=== PATIENT | male | born 1945 | race Caucasian/White ===

== ENCOUNTER 2019-05-23 12:12 | Day surgery (SDC) | payer MEDICARE ==
[2019-05-20 11:07] VITALS: BMI 29.4
[~2019-05-23 12:12] MED LIST: Lidocaine 1% PF 5 ML VIAL ONE; Magnevist 469MG/ML 20 ML VIAL ONE; Ondansetron PF 4 MG/2 ML Vial ONE; PROPOFOL 200 MG/20 ML VIAL ONE; diphenhydrAMINE 50 MG/ML VIAL ONE
[2019-05-23] MEDS ORDERED: Fentanyl 100 MCG/2 ML VIAL ONE (14:28)
[2019-05-23] MEDS ORDERED: Midazolam HCl 2 mg/2 ml Vial ONE (14:28)
--- NOTE | 2019-05-23 15:47 | MRI ---
MRI Cervical spine with and without contrast: HISTORY: Neck pain, cervical radiculopathy. Patient states right-sided neck pain with pain radiating to right shoulder. COMPARISON: None FINDINGS: Mild cerebral and cerebellar volume loss is partially imaged. The craniocervical junction is unremark able. No significant cord signal abnormality. Paravertebral soft tissues have a normal appearance and normal signal intensity. No abnormal areas of enhancement are seen after the administration of intravenous contrast. C1-2:No significant stenosis. C2-3: There is a mild disc osteophyte complex with uncinate process hypertrophy. There is mild efface ment of the ventral subarachnoid space. Facet degenerative changes are noted. Findings result in mild right and moderate left-sided neural foraminal narrowing. C3-4: There is a mild disc osteophyte complex and uncinate process hypertrophy. There is mild narrowi ng of the central spinal canal with slight flattening of the anterior aspect of the spinal cord. Moderate to severe bilateral neural foraminal narrowing is present. C4-5: There is a broad-based disc osteophyte complex and facet hypertrophic changes. There is general ized narrowing of the central spinal canal. Moderate right and severe left-sided neural foraminal narrowing are present. C5-6: There is mild loss of intervertebral disc height. Broad-based disc osteophyte complex is presen t. This narrows ventral subarachnoid space with encroachment on the anterior aspect of the spinal cord. Mild bilateral neural foraminal narrowing is present. C6-7: There is no significant disc bulge disc herniation. Minimal uncinate process hypertrophy is pre sent. Central spinal canal and neural foramina are patent. C7-T1: There is no disc bulge or disc herniation. Central spinal canal and neural foramina are patent . T1-2 level: There is a disc osteophyte complex with a left central and paracentral disc protrusion. T his disc protrusion does result in slight mass effect on the spinal cord, but there is normal signal intensity in the spinal cord at this level. The neural foramina are patent. IMPRESSION: Degenerative changes in the cervical spine greatest at the C3-4 and C4-5 levels where there is modera te and severe degrees of neural foraminal narrowing.
== END 2019-05-23 16:48 | disposition home or self-care (01) ==
LOC: SDC/OP 12:12
PROVIDERS: ATTEND Family Medicine
DX: M54.12 Radiculopathy, cervical region (principal); I10 Essential (primary) hypertension; E11.9 Type 2 diabetes mellitus without complications; E78.5 Hyperlipidemia, unspecified; M19.90 Unspecified osteoarthritis, unspecified site; Z79.4 Long term (current) use of insulin; Z79.82 Long term (current) use of aspirin; Z79.899 Other long term (current) drug therapy
CPT/HCPCS: 72156; 82565; A9579; J1200; J2001; J2250; J2405; J2704; J3010

== ENCOUNTER 2020-06-04 14:25 | Observation (INO) | payer MEDICARE ==
[2020-06-04 14:44] LABS: #Eosinphils 0.1 thou/uL (0.0-0.7); #Lymphocytes 1.4 thou/uL (1.20-3.40); #Monocytes 0.4 thou/uL (0.11-0.59); #Neutrophils 3.7 thou/uL (1.40-6.50); %Basophils 0.1 % (0.0-1.0); %Eosinophils 2.4 % (0.0-10.0); %Lymphocytes 24.8 % (21.0-51.0); %Monocytes 7.5 % (0.0-10.0); %Neutrophils 65.2 % (42.0-75.0); Hemoglobin 16.4 g/dL (14.0-18.0); Mean Corpuscular HGB CONC 34.2 g/dL (32.0-36.0); Mean Corpuscular Hemoglobin 31.2 pg (27.0-31.0); Mean Corpuscular Volume 91.4 fL (78.0-98.0); Mean Platelet Volume 7.7 fL (7.4-10.4); Platelet Count 129 thou/uL (130-400); RBC Distribution Width 12.1 % (11.5-14.5); Red Blood Cell (RBC) Count 5.26 mill/uL (4.70-6.10); White Blood Cell (WBC) Count 5.7 thou/uL (4.8-10.8)
--- NOTE | 2020-06-04 15:03 | RAD ---
Portable frontal chest radiograph: 06/04/2020 COMPARISON: 06/04/2015 HISTORY: Bradycardia, dyspnea FINDINGS: Lungs are clear. Heart and mediastinal contours appear within normal limits. Midline sterno fam wires are present. IMPRESSION: No acute findings.
[2020-06-04 15:27] LABS: ALT (SGPT) 13 U/L (8-55); AST (SGOT) 17 U/L (5-34); Albumin 4.3 g/dL (3.4-4.8); Alkaline Phosphatase 56 U/L (40-110); BUN (Urea Nitrogen) 26 mg/dL (8.4-25.7); Calc. Creatinine Clearance 0 mL/min (70-130); Carbon Dioxide 20 mmol/L (23-31); Globulin 2.6 g/dL (2.4-3.5); Glucose 142 mg/dL (83-110); Protein, Total 6.9 g/dL (5.8-8.1)
[2020-06-04 16:39] LABS: Chloride 109 mmol/L (98-107); Potassium 4.7 mmol/L (3.5-5.1); Sodium 144 mmol/L (136-145)
[2020-06-04 16:42] LABS: Anion Gap 18 mmol/L (10-20)
[2020-06-04 17:56] LABS: Troponin I 0.018 ng/mL (< 0.028)
[2020-06-04] MEDS ORDERED: Acetaminophen 650 MG Suppository PR PRN (18:17)
[2020-06-04] MEDS ORDERED: Dextrose 5% in Water 1,000 ML IV PRN (18:20)
[2020-06-04] MEDS ORDERED: HumaLOG 300 UNITS/3 ML VIAL SC PRN ×2 (18:20)
[2020-06-04] MEDS ORDERED: Dextrose 50% Abboject 50 ML SYRINGE SLOW IVP PRN (18:20)
--- NOTE | 2020-06-04 18:46 | PDOC.HHP ---
Hospitalist HPI - History of Present Illness History of Present Illness: ADMISSION DATE: 05/27/2020 TIME OF ASSESSMENT: 1800 PRIMARY CARE PHYSICIAN: Dr. Peraza CHIEF COMPLAINT: Slow heart rate HPI: This is a 74-year-old gentleman who was brought into the emergency department due to an episode of bradycardia that occurred while he was having a procedure done at [facility]. He was having a nerve ablation done. A code green was called. Patient reports being completely asymptomatic during this episode and did not realize his heart rate had decreased to the 20s. Denies any chest pain, shortness of breath, diaphoresis, lightheadedness or other symptoms. He reportedly was in bigeminy. During the procedure he had been given Versed and 50 mcg of fentanyl. He reportedly remained normotensive and at the time of initial presentation his blood pressure was 160/50. He last saw Dr. Sánchez 6 months ago and states that she had recommended a repeat stress test to be done in the next next few weeks. He last saw his primary care doctor 1 week ago and states it was a routine visit for his diabetes. ROS: Reports feeling well in recent days and denies having any recent fevers chills or sweats. No headaches or dizziness. No nausea or vomiting. His appetite has been good. Denies any changes with his stools. No urinary symptoms. Denies any shortness of breath with exertion. No recent cough or hemoptysis. All other review of systems are negative. ED COURSE: In the emergency department he had an EKG done which showed sinus bradycardia with a heart rate of 62, and bigeminy. Patient without any ST changes or T wave abnormalities. Chest x-ray was done showing no acute findings. Laboratory studies demonstrated a normal white blood count of 5.7, hemoglobin 16.4, hematocrit 48, platelets 129, neutrophils 65.2. BUN 26, creatinine 1.52, GFR 45. Glucose 142. LFTs normal. Magnesium 1.8. PAST MEDICAL HISTORY: 1. Type 2 diabetes 3. Hypertension 3. CAD 4. Chronic kidney disease 5. Hyperlipidemia 6. Arthritis PAST SURGICAL HISTORY: 1. CABG x5 2. Bilateral knee arthroscopy 3. Right shoulder surgery 4. Left shoulder rotator cuff repair 5. Sebaceous cyst excised from back SOCIAL HISTORY: Retired and . He denies any tobacco use, heavy alcohol consumption or drug use. He is fully independent at baseline and mobilizes without the use of assistive devices. FAMILY HISTORY: Father , heart disease. Mother , cancer. Siblings , lung cancer. ALLERGIES: No known drug allergies CURRENT MEDICATIONS: 1. Tylenol No. 3 2. Terazosin 3. Amlodipine 10 mg p.o. daily 4. Ranexa 500 mg ER p.o. twice daily 5. Fenofibrate 145 mg p.o. daily 6. Carvedilol 6.25 mg p.o. twice daily 7. Zolpidem 10 mg p.o. at bedtime 8. Aspirin 81 mg p.o. daily 9. Insulin glargine subcutaneous 10 units at noon and 42 units at bedtime 10. Cyclobenzaprine 10 mg p.o. 3 times daily as needed - Exam General Appearance: NAD, awake alert General - other findings: VS: Temp 97.5, HR 58, RR 15, O2 sat 100% on room air. Pain 0 out of 10. ENT: normocephalic atraumatic, no oropharyngeal lesions Neck: supple, symmetric, no JVD, no thyromegaly, no lymphadenopathy Heart: RRR, no murmur, no gallops, no rubs, normal peripheral pulses Respiratory: CTAB, no wheezes, no rales, no ronchi, normal chest expansion Gastrointestinal: soft, non-tender, non-distended, normal bowel sounds, no guarding, no rigidity Extremities: no cyanosis, no clubbing, no edema Skin: normal turgor, no lesions, no rashes Neurological: cranial nerve grossly intact, normal sensation to touch Musculoskeletal: normal tone, normal strength, no muscle wasting Psychiatric: normal affect, normal behavior, A&O x 3 Hospitalist Results - Labs Result Diagrams: 06/04/20 14:27 06/04/20 14:27 Lab results: WBC 5.7 thou/uL (4.8-10.8) 06/04/20 14:27 Hgb 16.4 g/dL (14.0-18.0) 06/04/20 14:27 Hct 48.0 % (42.0-52.0) 06/04/20 14:27 MCV 91.4 fL (78.0-98.0) 06/04/20 14:27 Plt Count 129 thou/uL (130-400) L 06/04/20 14:27 Neutrophils % 65.2 % (42.0-75.0) 06/04/20 14:27 Sodium 144 mmol/L (136-145) 06/04/20 14:27 Potassium 4.7 mmol/L (3.5-5.1) 06/04/20 14:27 Chloride 109 mmol/L (98-107) H 06/04/20 14:27 Carbon Dioxide 20 mmol/L (23-31) L 06/04/20 14:27 BUN 26 mg/dL (8.4-25.7) H 06/04/20 14:27 Creatinine 1.52 mg/dL (0.7-1.3) H 06/04/20 14:27 Glucose 142 mg/dL (83-110) H 06/04/20 14:27 Calcium 9.0 mg/dL (7.8-10.44) 06/04/20 14:27 Total Bilirubin 1.0 mg/dL (0.2-1.2) 06/04/20 14:27 AST 17 U/L (5-34) 06/04/20 14:27 ALT 13 U/L (8-55) 06/04/20 14:27 Alkaline Phosphatase 56 U/L (40-110) 06/04/20 14:27 Troponin I 0.018 ng/mL (< 0.028) 06/04/20 17:23 Serum Total Protein 6.9 g/dL (5.8-8.1) 06/04/20 14:27 Albumin 4.3 g/dL (3.4-4.8) 06/04/20 14:27 - Radiology Interpretation Chest x-ray Status: report reviewed by ia Hospitalist H&P A/P - Problem (1) Bradycardia Code(s): R00.1 - BRADYCARDIA, UNSPECIFIED Status: Acute (2) Thrombocytopenia Code(s): D69.6 - THROMBOCYTOPENIA, UNSPECIFIED Status: Acute (3) Hypertension Code(s): I10 - ESSENTIAL (PRIMARY) HYPERTENSION Status: Chronic (4) Diabetes mellitus Code(s): E11.9 - TYPE 2 DIABETES MELLITUS WITHOUT COMPLICATIONS Status: Chronic (5) Hyperlipidemia Code(s): E78.5 - HYPERLIPIDEMIA, UNSPECIFIED Status: Chronic (6) CAD (coronary artery disease) Code(s): I25.10 - ATHSCL HEART DISEASE OF [place] CORONARY ARTERY W/O ANG PCTRS Status: Chronic (7) CKD (chronic kidney disease) Code(s): N18.9 - CHRONIC KIDNEY DISEASE, UNSPECIFIED Status: Chronic Qualifiers: Chronic kidney disease stage: stage 3 (moderate) - Plan Plan: Patient with episode of asymtomatic bradycardia while undergoing nerve ablation for chronic back pain. HR dropped to 20s, unclear for how long and reportedly remained normotensive. EKG on arrival showed bigeminy with HR in 60s. Has not had further drop in HR while in the ED. Dr. Sánchez his plate setter was notified by ED physician. Patient admitted for further observation/work-up. Remains without complaints and will be admitted to Tele/Obs for management of following: Bradycardia: Continue cardiac monitoring Trend troponins Check TSH Mg 1.8, will give 1 g of Magnesium Sulfate Will repeat lytes with AM labs. Consult placed to Dr. Sánchez NPO after midnight Thrombocytopenia: No s/s of bleeding. Ok to continue daily aspirin Recheck with AM labs Hypertension: Monitor BP Resume home meds as appropriate once verified Hold beta-blockers until cleared by Dr. Sánchez Diabetes mellitus: Accu-cheks ACHS Cover with sliding scale CKD: Monitor renal function Repeat with AM labs CAD: Stable Hyperlipidemia: Resume home meds once verified GI Prophylaxis: Famotidine 20 mg PO BID DVT Prophylaxis: Mechanical SCDs Patient is ambulatory Consider Lovenox initiation of anticipating prolonged stay CODE STATUS: FULL Patients case discussed with attending who agrees with plan as above.
[2020-06-04] MEDS ORDERED: Famotidine 20 MG TAB PO SCH (21:00)
[2020-06-04 21:20] LABS: Troponin I Less than 0.010 ng/mL (< 0.028)
[2020-06-04] MEDS ORDERED: Ondansetron PF 4 MG/2 ML Vial IVP PRN (21:45)
[2020-06-04] MEDS ORDERED: Ondansetron ODT 4 MG TAB SL PRN (21:45)
[2020-06-04 22:05] VITALS: BMI 29.0
[2020-06-04] MEDS ORDERED: Zolpidem Tartrate 5 MG TAB PO PRN (23:05)
[2020-06-04] MEDS: Acetaminophen 325 MG TAB PO PRN (23:10)
[2020-06-05 02:10] LABS: SARS-CoV-2 MS2 Positive; SARS-CoV-2 N Gene Negative; SARS-CoV-2 S Gene Negative; SARS-CoV-2 by NAA Not Detected (NotDetected); SARS-CoV-2 orf1ab Negative
[2020-06-05 04:59] LABS: #Lymphocytes 0.5 thou/uL (1.20-3.40); #Monocytes 0.2 thou/uL (0.11-0.59); #Neutrophils 5.2 thou/uL (1.40-6.50); %Basophils 0.3 % (0.0-1.0); %Eosinophils 0.1 % (0.0-10.0); %Lymphocytes 8.4 % (21.0-51.0); %Neutrophils 88.1 % (42.0-75.0); Hemoglobin 15.1 g/dL (14.0-18.0); Mean Corpuscular HGB CONC 34.8 g/dL (32.0-36.0); Mean Corpuscular Hemoglobin 31.8 pg (27.0-31.0); Mean Corpuscular Volume 91.4 fL (78.0-98.0); Mean Platelet Volume 7.8 fL (7.4-10.4); Platelet Count 117 thou/uL (130-400); Red Blood Cell (RBC) Count 4.74 mill/uL (4.70-6.10)
[2020-06-05 05:21] LABS: Anion Gap 13 mmol/L (10-20); BUN (Urea Nitrogen) 31 mg/dL (8.4-25.7); Calc. Creatinine Clearance 50 mL/min (70-130); Calcium 8.9 mg/dL (7.8-10.44); Carbon Dioxide 24 mmol/L (23-31); Chloride 108 mmol/L (98-107); Glucose 408 mg/dL (83-110); Magnesium 2.1 mg/dL (1.6-2.6); Potassium 4.9 mmol/L (3.5-5.1); Sodium 140 mmol/L (136-145)
[2020-06-05] MEDS: Acetaminophen 325 MG TAB PO PRN (08:27)
[2020-06-05] MEDS ORDERED: Aspirin Chewable 81 MG TAB PO SCH (09:00)
[2020-06-05] MEDS ORDERED: Enoxaparin Sodium 40 MG/0.4 ML SYRINGE SC SCH (09:00)
[2020-06-05] MEDS ORDERED: Amlodipine 10 MG TAB PO SCH (09:00)
[2020-06-05 12:50] VITALS: BP 135/83; TEMP 97.8
--- NOTE | 2020-06-05 14:55 | PDOC.HOSPP ---
- Subjective Encounter Date: 06/05/20 Encounter Time: 14:53 Subjective: Mr. Brock was seen today in follow-up of bradycardia. He does not have any complaints. - Objective Vital Signs & Weight: Vital Signs (12 hours) Temp Pulse Resp BP Pulse Ox 06/05/20 12:18 97.8 F 65 16 135/83 98 06/05/20 08:21 98.6 F 64 16 178/92 H 97 06/05/20 03:51 98.3 F 82 16 168/79 H 96 Weight Weight 202 lb 1.6 oz I&O: 06/04/20 06/05/20 06/06/20 06:59 06:59 06:59 Intake Total 480 Balance 480 Result Diagrams: 06/05/20 04:21 06/05/20 04:21 Additional Labs: Accuchecks 06/05/20 06/05/20 06/04/20 10:16 05:40 21:09 POC Glucose 235 H 345 H 246 H Hospitalist ROS - Medication Medications: Active Medications Generic Name Dose Route Start Last Admin Trade Name Freq PRN Reason Stop Dose Admin Acetaminophen 650 mg 06/04/20 18:17 06/05/20 08:27 Acetaminophen 325 Mg Tab PO 650 mg Q4H PRN Administration Headache/Fever/Mild Pain (1-3) Amlodipine Besylate 10 mg 06/05/20 09:00 06/05/20 08:26 Amlodipine 10 Mg Tab PO 10 mg DAILY JAZZY Administration Aspirin 81 mg 06/05/20 09:00 06/05/20 08:26 Aspirin Chewable 81 Mg Tab PO 81 mg DAILY JAZZY Administration Famotidine 20 mg 06/04/20 21:00 06/04/20 21:35 Famotidine 20 Mg Tab PO 20 mg QPM JAZZY Administration Insulin Human Lispro 0 units 06/04/20 18:20 06/05/20 06:31 Humalog 300 Units/3 Ml Vial SC 5 unit .MILD SLIDING SCALE PRN Administration Mild Correctional Scale Zolpidem Tartrate 5 mg 06/04/20 23:05 06/04/20 23:11 Zolpidem Tartrate 5 Mg Tab PO 5 mg HS PRN Administration Insomnia - Exam Eye: PERRL, anicteric sclera Heart: RRR, no murmur, no gallops, no rubs, normal peripheral pulses Respiratory: CTAB, no wheezes, no rales, no ronchi, normal chest expansion, no tachypnea, normal percussion Gastrointestinal: soft, non-tender, non-distended, normal bowel sounds, no palpable masses, no hepatomegaly Extremities: no cyanosis, no edema Hosp A/P (1) Bradycardia Code(s): R00.1 - BRADYCARDIA, UNSPECIFIED Status: Acute (2) CAD (coronary artery disease) Code(s): I25.10 - ATHSCL HEART DISEASE OF [place] CORONARY ARTERY W/O ANG PCTRS Status: Chronic (3) Diabetes mellitus Code(s): E11.9 - TYPE 2 DIABETES MELLITUS WITHOUT COMPLICATIONS Status: Chronic (4) Hyperlipidemia Code(s): E78.5 - HYPERLIPIDEMIA, UNSPECIFIED Status: Chronic (5) Hypertension Code(s): I10 - ESSENTIAL (PRIMARY) HYPERTENSION Status: Chronic - Plan * Bradycardia- the patient's heart rate has been stable * He has been seen by Dr. Sánchez and cleared for discharge * Plan will be for out patient Stress test and further evaluation
--- NOTE | 2020-06-05 17:02 | CON ---
DATE OF CONSULTATION: 06/05/2020 INDICATION FOR CONSULTATION: This is a 74-year-old gentleman who has a history of known coronary artery disease. He has undergone bypass surgery in the past. He had 5-vessel bypass back in 2006. His most recent cardiac catheterization was in 05/2015, which showed severe 3-vessel coronary artery disease with [place] vessels and also occlusion of saphenous vein graft to the left circumflex as well as to the saphenous vein graft to the diagonal branch. He has still had a patent saphenous vein graft to the right coronary artery, ACEVEDO to the left anterior descending artery, and a radial artery graft also remain patent, I believe this was to the circumflex. He had been doing relatively well until he has recently been complaining of some fatigue and some shortness of breath, but mainly was complaining of fatigue. He has been having significant problems with his back. He has been having back pain. He did undergo some injection yesterday, and while he was in the office, apparently he had a heart rates in the 20s. The patient was asymptomatic. He was then transferred to the emergency room. EKGs here showed that the heart rate has been in the 70s to 80s. There is no indication he had any severe bradycardia; however, he did have PVCs, and most likely, this was the etiology of what was felt to be a slow heart rate, since the PVCs would not have been palpated by the pulse. He has remained completely asymptomatic. He denies any chest pain. He does have a history of PVCs in the past. Even back in 2017, he had significant amounts of PVCs. He is on beta blockers and has been relatively asymptomatic with the PVCs. PAST MEDICAL HISTORY: Significant for: 1. Coronary artery disease. 2. Bypass surgery. 3. Degenerative joint disease. 4. Hypercholesterolemia. 5. Nephrolithiasis. 6. Diabetes, which is type 2. 7. Chronic renal insufficiency, he is followed by the sales developer. 8. Hypertension. 9. Frequent PVCs. PAST SURGICAL HISTORY: 1. He has had bilateral knee arthroscopic procedure. 2. He has had a history of nephrolithiasis, he has had lithotripsy performed. 3. He has had a right shoulder scoping. 4. He has had a hemorrhoidectomy. 5. He had bypass surgery x5; he had a ACEVEDO to the LAD, he had a left radial to the first diagonal branch, he had a greater saphenous vein to second diagonal branch and also to the obtuse marginal branch of the left circumflex and also to the posterolateral branch of the right coronary artery. FAMILY HISTORY: His mother had pancreatitis. Father had myocardial infarctions and had heart disease previously. He has one brother with lymphoma. SOCIAL HISTORY: I believe he smoked in the past, but no longer smokes. ALLERGIES: HE HAS NO ALLERGIES. MEDICATIONS: Prior to admission, included: 1. Terazosin 2 mg tablets once a day at bedtime. 2. He also was using a Basaglar KwikPen 100 units twice a day and this has now been decreased down to once a day. 3. He is on zolpidem 10 mg half a tablet q.p.m. as needed. 4. Coreg 6.25 mg b.i.d. 5. Ranexa 500 mg b.i.d. 6. Aspirin 81 mg a day. 7. Amlodipine 10 mg a day. 8. Tylenol 500 mg as needed q.6 h. 9. He is on other p.r.n. medications. REVIEW OF SYSTEMS: He complains of fatigue and some dyspnea on exertion, but no shortness of breath otherwise, and back pain, otherwise he denied any HEENT complaints, pulmonary complaints, GI complaints, nausea, vomiting, diarrhea. He has had some problems with the blood sugar being too low and his blood pressure medicines were decreased and now he has been relatively stable. Otherwise, 12-point review of systems was unremarkable. LABORATORY DATA: WBC of 6.0, hemoglobin 15.1, and platelet count 117,000. Sodium was 140, potassium 4.9, his BUN was 31 with a creatinine of 1.63, blood sugar was 408, it is now decreased down to 235. EKG shows a normal sinus rhythm with frequent PVCs, no evidence of acute ischemic changes. Cardiac enzymes were negative x3. IMPRESSION AND PLAN: 1. Elderly gentleman with frequent premature ventricular contractions. Given the impression of significant bradycardia, he was completely asymptomatic. He has not had any symptoms since being here in the hospital. He had no bradycardia. He does have significant premature ventricular contractions at times, which is not new for this patient. He has had these in the past, will need to be followed up on a routine basis. He will continue with beta blockers. 2. Generalized fatigue with a history of coronary artery disease. We will schedule him for outpatient stress test to ensure that he has had no progression of coronary artery disease. It may be etiology of the fatigue as well as shortness of breath. 3. History of hypertension, this is under relatively good control at this time, but was somewhat elevated here in the hospital. We will need to perhaps increase his Coreg if at all possible in order to prevent further bradycardia. He may then need to add amlodipine, most likely will add amlodipine to his regimen to lower the blood pressure and we will follow this up in the office also. 4. Hypercholesterolemia. He will continue the present medications. I do not have a recent cholesterol level. This also could be followed up as an outpatient. 5. Chronic kidney disease. So, he will be continued to follow by the sales developer. At this time, I believe the patient is stable for discharge with his PVCs since he is completely asymptomatic and he will undergo stress testing in the office to rule out evidence of progression of coronary artery disease or graft failure. Job ID: [id number]
--- NOTE | 2020-06-05 17:46 | PDOC.DS.DS ---
Provider - Provider Date of Admission: 06/04/20 17:14 Date of Discharge: 06/05/20 Admitting Provider: Kori Karmer MD Consultations: Cardiology Primary Care Physician: Mario Peraza MD Course - Hospital Course Hospital Course: Mr. Ramsay is a pleasant 74-year-old gentleman that has a history of hypertension and diabetes mellitus as well as coronary artery disease. He was placed in observation due to symptomatic bradycardia. Carvedilol was held and he was monitored overnight. His heart rate appears to have recovered well overnight. He was seen by Dr. Sánchez his regular repairer maintenance building who felt that it was safe for him to be discharged home. The plan is for him to undergo an outpatient stress test and further evaluation with regards to his heart rate. These arrangements will be made by Dr. Sánchez. Resuscitation Status: 06/04/20 18:17 Resuscitation Status Routine Co-Sign Provider: Resuscitation Status: FULL: Full Resuscitation - Labs Lab Results: 06/05/20 04:21 06/05/20 04:21 Abnormal Lab Results - Last 48 hrs 06/04/20 14:27: MCH 31.2 H, Plt Count 129 L 06/04/20 14:27: Chloride 109 H, Carbon Dioxide 20 L, BUN 26 H, Creatinine 1.52 H 06/05/20 04:21: Chloride 108 H, BUN 31 H, Creatinine 1.63 H 06/05/20 04:21: MCH 31.8 H, Plt Count 117 L, Neutrophils % 88.1 H, Lymphocytes % 8.4 L, Lymphocytes # 0.5 L - Physical Exam Vitals: Vital Signs (12 hours) Temp Pulse Resp BP Pulse Ox 06/05/20 12:18 97.8 F 65 16 135/83 98 06/05/20 08:21 98.6 F 64 16 178/92 H 97 Weight Weight 202 lb 1.6 oz Physical Exam: The patient was seen and examined on the day of discharge. Problem - Problem (1) Bradycardia Code(s): R00.1 - BRADYCARDIA, UNSPECIFIED Status: Acute (2) CAD (coronary artery disease) Code(s): I25.10 - ATHSCL HEART DISEASE OF [place] CORONARY ARTERY W/O ANG PCTRS Status: Chronic (3) Diabetes mellitus Code(s): E11.9 - TYPE 2 DIABETES MELLITUS WITHOUT COMPLICATIONS Status: Chronic (4) Hyperlipidemia Code(s): E78.5 - HYPERLIPIDEMIA, UNSPECIFIED Status: Chronic (5) Hypertension Code(s): I10 - ESSENTIAL (PRIMARY) HYPERTENSION Status: Chronic Plan - Discharge Medications Home Medications: Medication Instructions Recorded Confirmed Type Amlodipine Besylate [amLODIPine 10 mg PO DAILY 05/30/15 06/04/20 History Besylate] Aspirin Chewable [Aspirin Chewable 81 mg PO DAILY 05/30/15 06/04/20 History Tablet] Ranolazine [Ranexa] 500 mg PO BID 06/04/15 06/04/20 History Insulin Glargine,Hum.Rec.Anlog 30 units SC 1200 05/20/19 06/04/20 History [Basaglar Kwikpen U-100] Terazosin HCl 2 mg PO DAILY 05/20/19 06/04/20 History Zolpidem Tartrate 5 mg PO HS PRN 05/20/19 06/04/20 History traMADol HCl [Tramadol HCl] 1 tab PO DAILY PRN 05/20/19 06/04/20 History Acetaminophen [Tylenol Extra 500 mg PO Q4HR 06/04/20 06/04/20 History Strength] Allergies: No Known Allergies Allergy (Verified 06/04/20 21:58) - Discharge Instructions Discharge Instructions:: Follow-up with Dr. Mario Peraza as already scheduled Activity:: Activity as Tolerated Nourishment:: Heart Healthy Diet - Follow up Plan Referrals: Johnie Sánchez MD [Active] - (Make sure to follow up with Dr. Woo's office to set up your cardiac stress test. Her office number is provided if they are unable to contact you. ) Mario Peraza MD [Primary Care Provider] - 06/12/20 (Please make sure to go to your regularly scheduled appointment on Jun 12. Make sure to bring your discharge paperwork with you. ) Disposition: HOME Quality - Care Measures CORE MEASURES:: N/A
--- NOTE | 2020-06-09 15:03 | EKG ---
Test Reason : Blood Pressure : / mmHG Vent. Rate : 062 BPM Atrial Rate : 062 BPM P-R Int : 212 ms QRS Dur : 092 ms QT Int : 438 ms P-R-T Axes : 049 011 024 degrees QTc Int : 444 ms Sinus rhythm with 1st degree A-V block with frequent Premature ventricular complexes in a pattern of bigeminy Otherwise normal ECG Confirmed by ADRIENNE HAYES DO ([id number]), supervising editor news reel BHUPINDER CARMONA ([id number]) on 06/09/2020 3:03:45 PM Referred By: Confirmed By:ADRIENNE HAYES DO
== END 2020-06-05 15:55 | disposition home or self-care (01) ==
LOC: ERS 14:25 → INTOOBSV 17:14 → 2NO 17:14
PROVIDERS: ADMIT Family Medicine; ATTEND Family Medicine
DX: R00.1 Bradycardia, unspecified (principal); I49.3 Ventricular premature depolarization; D69.6 Thrombocytopenia, unspecified; I12.9 Hypertensive chronic kidney disease with stage 1 through stage 4 chronic kidney disease, or unspecified chronic kidney disease; E11.22 Type 2 diabetes mellitus with diabetic chronic kidney disease; N18.30 Chronic kidney disease, stage 3 unspecified; I25.10 Atherosclerotic heart disease of native coronary artery without angina pectoris; E78.5 Hyperlipidemia, unspecified; M19.90 Unspecified osteoarthritis, unspecified site; G89.29 Other chronic pain; M54.9 Dorsalgia, unspecified; E78.00 Pure hypercholesterolemia, unspecified; R53.83 Other fatigue; Z87.891 Personal history of nicotine dependence; Z79.4 Long term (current) use of insulin; Z79.82 Long term (current) use of aspirin; Z79.899 Other long term (current) drug therapy; Z95.1 Presence of aortocoronary bypass graft; Z20.828 Contact with and (suspected) exposure to other viral communicable diseases
CPT/HCPCS: 71045; 80048; 82962 ×2; 83735 ×2; 84484 ×2; 85025; 93005; 99285; U0003; 36415; 36416; 80053; 84443; 87635; J2250; J2920; J3010; J3475; J3490; S0020